=== PATIENT | female | born 1960 | race Caucasian/White ===

== ENCOUNTER → 2023-09-19 06:40 | Day surgery (SDC) | payer OTHER, SELFPAY | LOC: GI 06:40 | PROVIDERS: ATTENDING PHYSICIAN Internal Medicine; FAMILY PHYSICIAN Physician Assistant Medical | DX: Z12.11 Encounter for screening for malignant neoplasm of colon (principal); D12.3 Benign neoplasm of transverse colon; K63.5 Polyp of colon; K57.30 Diverticulosis of large intestine without perforation or abscess without bleeding; K64.8 Other hemorrhoids; K64.4 Residual hemorrhoidal skin tags; Z86.010 Personal history of colon polyps | CPT/HCPCS: 45385; 45380; 88305 ==

== ENCOUNTER → 2024-05-02 14:19 | Outpatient (REF) | payer OTHER, SELFPAY | LOC: WDC 14:19 | PROVIDERS: ATTENDING PHYSICIAN Obstetrics & Gynecology; FAMILY PHYSICIAN Physician Assistant Medical | DX: Z12.31 Encounter for screening mammogram for malignant neoplasm of breast (principal) | CPT/HCPCS: 77063; 77067 ==

== ENCOUNTER → 2025-05-04 16:03 | Outpatient (REF) | payer OTHER, SELFPAY | LOC: WDC 16:03 | PROVIDERS: ATTENDING PHYSICIAN Obstetrics & Gynecology; FAMILY PHYSICIAN Physician Assistant Medical | DX: Z12.31 Encounter for screening mammogram for malignant neoplasm of breast (principal) | CPT/HCPCS: 77063; 77067 ==